=== PATIENT | female | born 2000 | race Two or more races ===

== ENCOUNTER 2023-04-24 09:36 | Emergency (ER) | payer MEDICAID, OTHER ==
[~2023-04-24] VITALS: Ht 160 cm; Wt 45.5 kg
[2023-04-24 10:20] LABS: Urine Bacteria MANY /hpf (None Seen); Urine Blood 2+ /uL (Negative); Urine Mucus MODERATE (None Seen); Urine Specific Gravity 1.041 (1.001-1.035); Urine WBC 3 /hpf (0 - 5)
[2023-04-24 10:35] LABS: Hemoglobin 14.9 g/dL (12.2-16.2); Mean Corpuscular Hemoglobin 33.2 pg (28.0-32.0); Mean Corpuscular Hgb Conc. 35.6 g/dL (32.0-36.0); Mean Corpuscular Volume 93.3 fL (80.0-100.0); Red Cell Distribution Width 12.6 % (11.8-14.3); White Blood Cell 10.6 10^3/uL (4.4-10.8)
[2023-04-24 10:41] LABS: Band Neutrophils % (manual) 0; Basophils % (manual) 0 (0.0-2.0); Blast Cells 0; Eosinophils % (manual) 0 (0-7); Metamyelocytes % 0; Monocytes % (manual) 0 (0-12); Myelocytes % 0; Promyelocytes % 0; Reactive Lymphocytes 0
[2023-04-24 11:03] LABS: Albumin 4.3 g/dL (3.4-5.0); Calcium 9.2 mg/dL (8.5-10.1); Potassium 3.6 mmol/L (3.5-5.1)
[2023-04-24 11:08] LABS: BUN/Creatinine Ratio 10.5 (10.0-20.0); Total Protein 8.2 g/dL (6.4-8.2)
[2023-04-24] MEDS ORDERED: SODIUM CHLORIDE 0.9% 1,000 ML IV ONE ×2 (11:45)
[2023-04-24] MEDS ORDERED: PROMETHAZINE HCL 25 MG/ML 1ML IV ONE (11:45)
[2023-04-24 12:09] LABS: Lymphocytes % (manual) 7 (10.0-50.0)
[2023-04-24 14:16] VITALS: BP 144/85
== END 2023-04-24 14:06 | disposition home or self-care (01) ==
LOC: ER 09:36
DX: O21.0 Mild hyperemesis gravidarum (principal); R10.2 Pelvic and perineal pain; Z3A.10 10 weeks gestation of pregnancy
CPT/HCPCS: 36415; 76801; 80053; 81001; 84702; 85007; 85027; 96361; 96374; 99285; J2550; J7030

== ENCOUNTER 2025-02-14 07:30 | Emergency (ER) | payer MEDICAID ==
[~2025-02-14] VITALS: Ht 160 cm; Wt 73.1 kg
[2025-02-14 08:10] VITALS: BP 123/66; PULSE 90; RESP 16; TEMP 98; O2SAT 97
[2025-02-14] MEDS ORDERED: CYCL-837 PO (10:40)
--- NOTE | 2025-02-14 10:40 | ED.PDOC ---
History of Present Illness HPI Comments 24-year-old female presents with a chief complaint of atraumatic bilateral mandibular pain. Pain started yesterday. Reports having the same symptoms in the past and usually resolve suddenly. Pain is associated with a clicking popping sound with a jaw movements. Has not tried medication for the symptoms listed above. Has not seen a dental care provider for the symptoms listed above. Denies any fevers chills nausea vomiting diarrhea Chief Complaint: Jaw Pain Time Seen by MD: 07:52 Primary Care Provider: none Reviewed Notes: Nurses Notes, Medications, Allergies Allergies: Coded Allergies: Ciprofloxacin (Verified Allergy, Unknown, 04/24/23) Information Source: Patient Mode of Arrival: Ambulatory Past Medical History PAST MEDICAL HISTORY: Denies Surgical History: Unknown MEDICAL FACILITIES SECTION DIRECTOR History: Denies all MEDICAL FACILITIES SECTION DIRECTOR Hx Family History Family History: Unknown Social History Smoker: Non-Smoker Alcohol: Denies ETOH Use Drugs: Denies Drug Use Lives In: Home All Other Systems: Reviewed and Negative (Per HPI) Physical Exam General Appearance: No Apparent Distress, Normal HEENT: Normal ENT Inspection, Pharynx Normal, TMs Normal, Other (No gross abnormality of the mandible. Popping noted with opening of the jaw. Airway intact.) Neck: Full Range of Motion, Non-Tender, Normal, Normal Inspection Respiratory: Chest Non-Tender, Lungs Clear, No Accessory Muscle Use, No Respiratory Distress, Normal Breath Sounds Cardiovascular: No Edema, No JVD, No Murmur, No Gallop, Normal Peripheral Pulses, Regular Rate/Rhythm Breast Exam: Deferred Gastrointestinal: No Organomegaly, Non Tender, No Pulsatile Mass, Normal Bowel Sounds, Soft Genitalia: Deferred Pelvic: Deferred Rectal: Deferred Extremities: No calf tenderness, Normal capillary refill, Normal inspection, Normal range of motion, Non-tender, No pedal edema Musculoskeletal : Apperance: Normal Neurologic: Alert, pump servicer helper II-XII nml as Tested, No Motor Deficits, Normal Affect, Normal Mood, No Sensory Deficits Cerebellar Function: Normal Reflexes: Normal Skin: Dry, Normal Color, Warm Lymphatic: No Adenopathy Was a procedure done? Was a procedure done?: No Differential Dx Considerations may include: dislocation, TMJ disorder, tooth pain X-Ray, Labs, Meds, VS Vital Signs Date Time Temp Pulse Resp B/P (MAP) Pulse Ox O2 Delivery O2 Flow Rate FiO2 02/14/25 08:10 98.0 90 16 123/66 (85) 97 98.0 02/14/25 08:10 90 16 97 Room Air* 0 21 02/14/25 07:42 98.6 92 20 132/87 (102) 97 98.6 Lab Test 02/14/25 09:29 Range/Units Urine Test Positive Negative X-Ray, Labs, Meds, VS Comment After ROS physical examination findings are consistent with TMJ disorder. Considered x-ray however patient is currently . There is also no indication this is the patient did not has a traumatic injury. Do not suspect d islocation. Supportive care measures at this time. Recommended warm compresses massage the affected area. Use [id number] Tylenol as needed for pain in addition to muscle relaxers. Patient advised a thorough limited studies with cyclobenzaprine regarding considerations that patient verbalized understanding. Advised to follow up with dental provider for a possible mouth guard. Return precautions discussed if symptoms do not improve and patient verbalized understanding Time of 1ST Reevaluation: 10:35 Reevaluation 1ST: Improved Patient Education/Counseling: Diagnosis, Treatment Family Education/Counseling: Diagnosis, Treatment Departure 1 Departure Time of Disposition: 10:39 Impression: Primary Impression: Temporomandibular joint disorder (TMJ) Disposition: 01 HOME / SELF CARE / HOMELESS Condition: Stable e-Prescriptions Cyclobenzaprine Hcl (Cyclobenzaprine Hcl) 5 Mg Tab 1 TAB PO QHSP PRN for 14 Days, #14 TAB 0 Refills Prov: JULIA AKERS NP 02/14/25 Critical Care Note Critical Care Time?: No Stability Stability form required: No Heart Score Heart Score: Heart Score Response (Comments) Value History N/A 0 EKG N/A 0 Age N/A 0 Risk Factors N/A 0 Troponin N/A 0 Total 0 JULIA AKERS NP February 14, 2025 10:40
== END 2025-02-14 10:49 | disposition home or self-care (01) ==
LOC: ER 07:30
DX: O99.891 Other specified diseases and conditions complicating pregnancy (principal); M26.603 Bilateral temporomandibular joint disorder, unspecified; Z3A.01 Less than 8 weeks gestation of pregnancy; Z88.1 Allergy status to other antibiotic agents
CPT/HCPCS: 81025